=== PATIENT | male | born 1985 | race Caucasian/White ===

== ENCOUNTER 2019-11-17 23:36 | Emergency (ER) | payer OTHER, SELFPAY ==
[2019-11-17 23:45] VITALS: BP 164/95; PULSE 120; RESP 18; TEMP 37.1; O2SAT 96; BMI 25.8
--- NOTE | 2019-11-17 23:49 | DI.RAD.S_ITS ---
PROCEDURE: XR HAND LT 2V INDICATIONS: laceration TECHNIQUE: 2 views of the hand(s) acquired. COMPARISON: None. FINDINGS: Bones: No fractures or dislocations. Carpal bones are normally aligned. No suspicious bony lesions. Soft tissues: No suspicious soft tissue calcifications. No radiodense foreign body. IMPRESSION: No fracture. No osseous lesion. If symptoms and/or clinical suspicion for pathology persists, further assessment with repeat radiographs (7-10 days) or advanced imaging (e.g. CT, MRI or bone scan) may be helpful. Dictated by: Faby Aldridge MD, PhD on 11/18/2019 at 9:04 Approved by: Faby Aldridge MD, PhD on 11/18/2019 at 9:05
[2019-11-17] MEDS: TET,DIPH,PERTUSS(ACELL),VAC/PF 0.5 ML SYRINGE IM (23:53)
--- NOTE | 2019-11-18 00:15 | ED_ITS ---
HPI - Wound/Laceration General Chief Complaint: Wound/Laceration Stated Complaint: left hand injury saw blade cut open Time Seen by Provider: 11/18/19 00:06 Source: patient Mode of arrival: Ambulatory Limitations: no limitations History of Present Illness HPI narrative: 34-year-old male here for evaluation of a cut to the back of his left hand. Patient is left-hand dominant. He states that the cut occurred when he hit it with an angle broach grinder. It did occur several hours prior to arrival. He did try to clean out at home. He states he noticed that he could see the tendon on the back of his hand. Does state that he needs a tetanus shot. Related Data Previous Rx's Medication Instructions Recorded cephalexin [Keflex] 500 mg PO QID 5 Days #20 cap 11/18/19 Allergies Allergy/AdvReac Type Severity Reaction Status Date / Time No Known Drug Allergies Allergy Verified 11/17/19 23:49 Review of Systems Constitutional Constitutional: Denies headache(s) ENT Ears, Nose, Mouth, and Throat: Denies headache(s) Musculoskeletal Musculoskeletal: Denies tingling Comments: Pain in the back and Integumentary/Breasts Comments: Cut backhoe operator Neurologic Neurologic: Denies headache(s) and Denies tingling Hematologic/Lymphatic Hematologic/Lymphatic: Denies easy bleeding and Denies easy bruising Patient History Medical History Healthy adult (Acute) Social History Smoking Status: Never smoker Smoking Status: Never smoker alcohol intake frequency: 3 or more drinks per day Alcohol type: beer Substance Use Type: does not use Exam Initial Vital Signs Initial Vital Signs: Vital Signs Temperature 98.8 F 11/17/19 23:45 Pulse Rate 120 H 11/17/19 23:45 Respiratory Rate 18 11/17/19 23:45 Blood Pressure 164/95 H 11/17/19 23:45 Pulse Oximetry 96 11/17/19 23:45 Const General: cooperative, healthy appearing and comfortable Cardio Pulses: radial pulses present on the left Skin Other: Patient with a 5 cm laceration on the dorsum of the left hand along the metacarpal of the index finger. No active bleeding. Neuro Sensory Exam: no sensory deficits noted Extrem Other: Patient able to flex and extend at the MCP and IP joint to the left thumb. Also able to flex and extend both active and passive at the MCP D IP and PIP joint to the left index finger. Procedures Laceration Repair Laceration 1: Site: hand Side (If applicable): left Size (cm): 5 Description: linear Depth: involves muscle layer Local Anesthetic: lidocaine 1% and with epi Amount of anesthesia used (mL): 8 Pre-repair: wound explored, irrigated extensively and deep structures intact Skin layer closed with: nylon Size (cm): 3-0 Number of sutures: 5 Technique: simple, interrupted Course Orders Ordered: ED Orders 11/17/19 23:49 XR hand LT 2V Stat Discontinued Medications Bacitracin (Bacitracin) 1 applic TOP NOW ONE Stop: 11/18/19 00:58 Last Admin: 11/18/19 01:17 Dose: 1 applic Documented by: JAYLON Cephalexin HCl (Keflex) 500 mg PO NOW ONE Stop: 11/18/19 00:58 Last Admin: 11/18/19 01:12 Dose: 500 mg Documented by: JAYLON Diphtheria/Tetanus/Acell Pertussis (Adacel) 0.5 ml IM .ONCE ONE Stop: 11/17/19 23:50 Last Admin: 11/17/19 23:53 Dose: 0.5 ml Documented by: JAYLON Lidocaine HCl (Xylocaine 1% (Pf)) 6 ml INJ NOW ONE Stop: 11/18/19 00:11 Last Admin: 11/18/19 00:37 Dose: 6 ml Documented by: HUMPHREY Vital Signs Vital signs: Vital Signs - 8 hr 11/17/19 23:45 11/18/19 01:25 Temperature 98.8 F Pulse Rate 120 H 81 Respiratory Rate 18 16 Blood Pressure 164/95 H 135/77 Pulse Oximetry 96 98 MDM - Wound/Laceration Imaging Data Extremity x-ray #1: Attestation: I personally reviewed and interpreted this imaging study as follows: My Impression: No fractures, no dislocations, MDM Narrative Medical decision making narrative: Patient's tetanus is updated. Is neurovascularly intact. No fractures on the x-rays. No foreign bodies noted on the exam. I did see the extensor tendon to the left index finger through the incision however there was no damage to the tendon through full flexion and extension of the joints of the left index finger. The wound was closed as described above. Given the fact that it was a broach grinder on his hand will start on antibiotics. Patient was given return precautions and care instructions and follow-up instructions. He expressed understanding and agreement plan. Discharge Plan Departure Patient Disposition: Home Clinical Impression: Laceration Discharge Date/Time: 11/18/19 01:25 Instructions: DI for Laceration Repair Activity Restrictions/Additional Instructions: You can wash her hand like normal. You can shower like normal in use soap and water. Do not soak your hand until the wound is healed. The stitches do need to come out in 7-10 days. A prescription for antibiotics was electronically transmitted to [facility] on [facility]. Return to the emergency dep artment for any new or worsening symptoms Prescriptions: New cephalexin [Keflex] 500 mg capsule 500 mg PO QID 5 Days Qty: 20 RF: 0
[2019-11-18] MEDS: LIDOCAINE 1% (PF) 6 ML INJ (00:37)
[2019-11-18] MEDS: cephALEXin 250 MG CAPSULE 500 MG PO (01:12)
[2019-11-18] MEDS: BACITRACIN OINT 0.9 GM PCKT 1 APPLIC TOP (01:17)
[2019-11-18 01:25] VITALS: BP 135/77; PULSE 81; RESP 16; O2SAT 98
== END 2019-11-18 01:25 | disposition home or self-care (01) ==
PROVIDERS: Emergency Provider Emergency Medicine
DX: S61.412A Laceration without foreign body of left hand, initial encounter (principal); W26.9XXA Contact with unspecified sharp object(s), initial encounter; Z23 Encounter for immunization
CPT/HCPCS: 12002; 73120; 90471; 99283; 99284; 90715